=== PATIENT | female | born 2000 | race Caucasian/White ===

== ENCOUNTER 2023-02-24 13:31 | Emergency (ER) | payer OTHER, MEDICAID ==
[~2023-02-24] VITALS: Ht 157.5 cm; Wt 88.5 kg
[2023-02-24 13:31] VITALS: BP_SYST 112; PULSE 84; RESP 18; TEMP 98.4; O2SAT 96
[2023-02-24] MEDS ORDERED: KETOROLAC TROMETHAMINE 60 MG/2 ML VIAL IM ONE (15:30)
[2023-02-24] MEDS ORDERED: METH-634 PO (19:10)
[2023-02-24 19:20] VITALS: BP_SYST 114; PULSE 99; RESP 18; TEMP 97.6; O2SAT 96
== END 2023-02-24 19:20 | disposition home or self-care (01) ==
LOC: SED 13:31
DX: S16.1XXA Strain of muscle, fascia and tendon at neck level, initial encounter (principal); M25.512 Pain in left shoulder; V43.52XA Car driver injured in collision with other type car in traffic accident, initial encounter; Y93.89 Activity, other specified; Y92.89 Other specified places as the place of occurrence of the external cause; Y99.8 Other external cause status
CPT/HCPCS: 99285; 72125; 73030; 76376; 74176; 96372; J1885